=== PATIENT | male | born 1940 | race Caucasian/White ===

== ENCOUNTER 2016-12-04 14:59 | Emergency (ER) | payer MEDICARE, BC ==
[2016-12-04 16:05] VITALS: BP 180/79
--- NOTE | 2016-12-04 16:26 | EDM.PDOC ---
ED HPI GENERAL MEDICAL PROBLEM - General Chief Complaint: Lower Extremity Injury/Pain Stated Complaint: RT LEG WOUND Time Seen by Provider: 12/04/16 16:20 Source of Information: Reports: Patient History Limitations: Reports: No Limitations - History of Present Illness INITIAL COMMENTS - FREE TEXT/NARRATIVE: sore on right lower leg for past 2 weeks. question initially if was a bite or an injury. Now draining over past few days and would has opened. Diabetic , having some pain at nite when trying to sleep. Redness is actually better. Concerned that it is not healing. No hx of troubles in past - Related Data Allergies Allergy/AdvReac Type Severity Reaction Status Date / Time No Known Allergies Allergy Verified 06/25/13 20:07 Home Meds: Home Meds Albuterol Sulfate [Albuterol Sulfate HFA] 2 puff INH ASDIRECTED PRN 06/25/13 [ History] Ascorbic Acid [Vitamin C] 500 mg PO DAILY 06/25/13 [History] Aspirin 325 mg PO DAILY 06/25/13 [History] Atenolol [Tenormin] 50 mg PO BID 06/25/13 [History] Balsalazide Disodium 2,250 mg PO BID 06/25/13 [History] Calcium Citrate/Vitamin D3 [Citracal + D Maximum Caplet] 1 tab PO BID 06/25/13 [ History] Clopidogrel Bisulfate [Clopidogrel] 75 mg PO DAILY 06/25/13 [History] Digoxin 0.25 mg PO DAILY 06/25/13 [History] Ferrous Sulfate [Iron] 324 mg PO DAILY 06/25/13 [History] Furosemide 20 mg PO DAILY 06/25/13 [History] Insulin Aspart [NovoLOG] 18 units SQ TIDAC 06/25/13 [History] Insulin Glarg,Human.Rec.Analog [Lantus Solostar] 52 units SQ BID 06/25/13 [ History] Isosorbide Mononitrate [Imdur] 30 mg PO DAILY 06/25/13 [History] Lisinopril 40 mg PO DAILY 06/25/13 [History] Mesalamine [Canasa] 1,000 mg RECTAL ASDIRECTED 06/25/13 [History] NIFEdipine [Nifedipine ER] 90 mg PO DAILY 06/25/13 [History] Nitroglycerin [Nitrostat] 0.4 mg SL ASDIRECTED PRN 06/25/13 [History] Omeprazole 20 mg PO DAILY 06/25/13 [History] Potassium Chloride 10 meq PO DAILY 06/25/13 [History] Simvastatin 40 mg PO DAILY 06/25/13 [History] metFORMIN [Glucophage] 1,000 mg PO BID 06/25/13 [History] traZODone HCl [Trazodone HCl] 100 mg PO BEDTIME 06/25/13 [History] Brimonidine [Alphagan P 0.1% Ophth Soln] 1 drop EYEBOTH TID 06/26/13 [History] Cyanocobalamin (Vitamin B12) [Vitamin B12] 1 tab PO DAILY 12/04/16 [History] Fluticasone Propionate [Flonase Allergy Relief] 2 spray MALCOM BEDTIME 12/04/16 [ History] Past Medical History HEENT History: Reports: Allergic Rhinitis, Cataract, Hard of Hearing, Impaired Vision Cardiovascular History: Reports: Bypass, High Cholesterol, Hypertension, Stents Respiratory History: Reports: Asthma, COPD - Past Surgical History HEENT Surgical History: Reports: Cataract Surgery, Eye Surgery Cardiovascular Surgical History: Reports: Coronary Artery Bypass Social & Family History - Tobacco Use Smoking Status *Q: Former Smoker Years of Tobacco use: 8 Used Tobacco, but Quit: No - Caffeine Use Caffeine Use: Reports: None - Alcohol Use Days Per Week of Alcohol Use: 0 - Recreational Drug Use Recreational Drug Use: No Review of Systems - Review of Systems Review Of Systems: See Below Constitutional: Reports: No Symptoms Mouth/Throat: Reports: No Symptoms Respiratory: Reports: No Symptoms Cardiovascular: Reports: No Symptoms GI/Abdominal: Reports: No Symptoms Genitourinary: Reports: No Symptoms Musculoskeletal: Reports: No Symptoms Skin: Reports: Wound (right lower leg, no obvious trauma) Neurological: Reports: No Symptoms ED EXAM, GENERAL - Physical Exam Exam: See Below Exam Limited By: No Limitations General Appearance: Alert, No Apparent Distress Extremities: Normal Range of Motion, Non-Tender. No: Joint Swelling Neurological: Normal Cognition, Normal Gait, No Motor/Sensory Deficits Skin Exam: Wound/Incision (1 cm wound on lower outer gaytan area. Into fatty layer , no drainage, minimal surrounding redness. Sensation around area is good. ) Course - Vital Signs Last Recorded V/S: Last Vital Signs Temp 36.8 C 12/04/16 16:19 Pulse 67 06/15/17 16:19 Resp 16 12/04/16 16:19 BP 180/79 H 12/04/16 16:19 Pulse Ox 97 12/04/16 16:19 - Orders/Labs/Meds Orders: Active Orders 24 hr Category Date Time Status CULTURE WOUND + SMEAR [RM] Stat Lab 12/04/16 15:59 Received Departure - Departure Time of Disposition: 16:31 Disposition: Home, Self-Care 01 Clinical Impression: Diabetic leg ulcer - Discharge Information Forms: ED Department Discharge Additional Instructions: Wound care for diabetic leg ulcer. Back if not improving - Problem List & Annotations (1) Diabetic leg ulcer SNOMED Code(s): 50437006, 942163192 Code(s): E11.622 - TYPE 2 DIABETES MELLITUS WITH OTHER SKIN ULCER; L97.909 - NON-PRS CHRONIC ULC UNSP PRT OF UNSP LOW LEG W UNSP SEVERITY Status: Acute Priority: Medium Current Visit: Yes Onset Date: ~11/19/16 - Problem List Review Problem List Initiated/Reviewed/Updated: Yes - Assessment/Plan Assessment:: Open wound on right lower leg in a diabetic. On exam, it has minimal redness with some good granulation tissue present. Somewhat sore, but no signs of deeper infection Plan: Home with skin care. Will continue to dress with gauze and bacitracin. Expect should heal over next few weeks. Back sooner if increased redness or drainage
== END 2016-12-04 17:00 | disposition home or self-care (01) ==
LOC: JP.ED 14:59
DX: E11.622 Type 2 diabetes mellitus with other skin ulcer (principal); L97.212 Non-pressure chronic ulcer of right calf with fat layer exposed; E78.00 Pure hypercholesterolemia, unspecified; I10 Essential (primary) hypertension; J45.909 Unspecified asthma, uncomplicated; J44.9 Chronic obstructive pulmonary disease, unspecified; Z95.5 Presence of coronary angioplasty implant and graft; Z98.49 Cataract extraction status, unspecified eye; Z98.890 Other specified postprocedural states; Z87.891 Personal history of nicotine dependence; Z79.4 Long term (current) use of insulin; Z79.84 Long term (current) use of oral hypoglycemic drugs; Z79.899 Other long term (current) drug therapy; Z79.82 Long term (current) use of aspirin
CPT/HCPCS: 87070; 87077; 87186; 87205; 99283; 99284

== ENCOUNTER 2017-10-21 19:03 | Emergency (ER) | payer MEDICARE, BC | END 2017-10-21 20:00 | disposition left against medical advice (07) | LOC: JP.ED 19:03 | DX: Z53.21 Procedure and treatment not carried out due to patient leaving prior to being seen by health care provider (principal) ==